=== PATIENT | male | born 1985 | race Caucasian/White ===

== ENCOUNTER 2018-01-09 20:18 | Emergency (ER) | payer SELFPAY ==
[2018-01-09] MEDS: MORPHINE SULFATE 4 MG/ML DISP.SYRIN. IM (20:58)
[2018-01-09] MEDS: methylPREDNISolone SOD SUCC PF 125 MG/2 ML VIAL. IM (20:59)
== END 2018-01-09 21:47 | disposition home or self-care (01) ==
LOC: ER 20:18
DX: M54.5 Low back pain (principal); M79.652 Pain in left thigh; R10.32 Left lower quadrant pain; Z98.890 Other specified postprocedural states
CPT/HCPCS: 96372; 99284; J2270; J2930

== ENCOUNTER 2018-01-17 06:27 | Emergency (ER) | payer SELFPAY ==
[2018-01-17] MEDS: KETOROLAC 60 MG/2 ML INJ. IM (08:14)
== END 2018-01-17 08:41 | disposition home or self-care (01) ==
LOC: ER 06:27
DX: M54.5 Low back pain (principal); G89.29 Other chronic pain; F17.200 Nicotine dependence, unspecified, uncomplicated
CPT/HCPCS: 72100; 96372; 99284; J1885

== ENCOUNTER 2018-01-18 11:41 | Emergency (ER) | payer SELFPAY ==
[2018-01-18] MEDS: fentaNYL PF VIAL 100 MCG/2 ML VIAL IM (13:11)
== END 2018-01-18 14:35 | disposition home or self-care (01) ==
LOC: ER 11:41
DX: S32.040A Wedge compression fracture of fourth lumbar vertebra, initial encounter for closed fracture (principal); F17.200 Nicotine dependence, unspecified, uncomplicated; W06.XXXA Fall from bed, initial encounter; Y93.89 Activity, other specified; Y99.8 Other external cause status; Y92.89 Other specified places as the place of occurrence of the external cause
CPT/HCPCS: 72131; 96372; 99284-25; J3010

== ENCOUNTER 2018-02-17 09:48 | Emergency (ER) | payer SELFPAY ==
[2018-02-17] MEDS: IBUPROFEN 800 MG TABLET. PO (10:37)
[2018-02-17] MEDS: HYDROcodone/APAP 5/325MG 1 TAB TABLET PO (10:37)
== END 2018-02-17 12:09 | disposition home or self-care (01) ==
LOC: ER 12:09
DX: M25.552 Pain in left hip (principal)
CPT/HCPCS: 73502; 99284